=== PATIENT | female | born 1940 | race Caucasian/White ===

== ENCOUNTER 2021-01-04 22:49 | Emergency (ER) | payer MEDICARE, BC ==
[2021-01-05 00:02] LABS: ALBUMIN 3.6 g/dL (3.4-4.8); POTASSIUM 3.4 mmol/L (3.5-5.1)
[2021-01-05 00:03] LABS: CALCIUM 10.1 mg/dL (8.3-10.5)
[2021-01-05 00:05] LABS: TOTAL PROTEIN 6.7 g/dL (6.2-8.1)
[2021-01-05 00:06] LABS: TOTAL BILIRUBIN 0.4 mg/dL (0.2-1.2)
[2021-01-05] MEDS ORDERED: LOSARTAN POTASS50 M1 PO (00:06)
[2021-01-05 00:07] LABS: HEMATOCRIT 44.5 % (37.0-47.0); HEMOGLOBIN 14.5 g/dL (12.5-16.0); MEAN CELL VOLUME 93 fl (78-100); MEAN CORPUSCULAR HEMOGLOBIN 30 pg (27-31); MEAN CORPUSCULAR HGB CONC 33 g/dL (33-37); MEAN PLATELET VOLUME 10.2 fl (7.4-10.4); PLATELET COUNT 217 K/mm3 (130-400); RED BLOOD COUNT 4.77 M/mm3 (4.10-5.30); RED CELL DISTRIBUTION WIDTH 14.3 % (11.5-14.5); WHITE BLOOD COUNT 13.3 K/mm3 (4.8-10.8)
[2021-01-05] MEDS ORDERED: FLUTICASON0.05 MG/AC NS (00:07)
[2021-01-05] MEDS ORDERED: ADULT ASPIRIN R81 MG PO (00:09)
[2021-01-05 00:17] LABS: URINE APPEARANCE HAZY; URINE COLOR YELLOW
[2021-01-05 00:18] LABS: URINE BILIRUBIN NEGATIVE (NEGATIVE); URINE BLOOD 250 ery/uL (NEGATIVE); URINE GLUCOSE NEGATIVE (NEGATIVE); URINE KETONE NEGATIVE (NEGATIVE); URINE LEUKOCYTE ESTERASE TRACE (NEGATIVE); URINE NITRATE POSITIVE (NEGATIVE); URINE PROTEIN(semi-quant) 2+ mg/dL (NEGATIVE); URINE UROBILINOGEN NORMAL (NORMAL)
[2021-01-05 00:42] LABS: BAND 17 % (0-10); LYMPHOCYTE 1 % (20-51); MONOCYTE 1 % (3-10); NEUTROPHILS 80 % (42-75)
[2021-01-05 05:20] VITALS: BP 144/103
[2021-01-05] MEDS ORDERED: COLACE100 M1 PO (06:33)
== END 2021-01-05 05:20 | disposition other institution (70) ==
LOC: ED 22:49
PROVIDERS: Family Medicine
DX: N39.0 Urinary tract infection, site not specified (principal); G45.9 Transient cerebral ischemic attack, unspecified; R74.8 Abnormal levels of other serum enzymes; I50.9 Heart failure, unspecified; I11.0 Hypertensive heart disease with heart failure; J44.9 Chronic obstructive pulmonary disease, unspecified; Z20.822 Contact with and (suspected) exposure to COVID-19; Z79.82 Long term (current) use of aspirin
CPT/HCPCS: J0696; J1940

== ENCOUNTER 2021-01-05 05:17 | Inpatient (IN) | payer MEDICARE, BC ==
[~2021-01-05] VITALS: Ht 152.4 cm; Wt 89.6 kg
[~2021-01-05 05:17] MED LIST: ADULT ASPIRIN R81 MG PO; FLUTICASON0.05 MG/AC NS; LOSARTAN POTASS50 M1 PO
[2021-01-05 06:02] VITALS: BP 144/103
[2021-01-05] MEDS ORDERED: COLACE100 M1 PO (06:33)
[2021-01-05 09:40] VITALS: BP 88/57
[2021-01-05 14:11] VITALS: BP 105/60
[2021-01-05 17:11] VITALS: BP 122/79
[2021-01-05 17:46] LABS: POTASSIUM 3.8 mmol/L (3.5-5.1)
[2021-01-05 17:47] LABS: CALCIUM 10.5 mg/dL (8.3-10.5)
[2021-01-05 18:17] LABS: TROPONIN-I 2.44 ng/mL (<0.030)
[2021-01-05 22:06] VITALS: BP 122/79
[2021-01-06] VITALS (7 sets, daily range): BP systolic 92–130; BP diastolic 50–85
[2021-01-06 08:58] LABS: BASO # 0.03 K/mm3 (0.02-0.10); EOS # 0.16 K/mm3 (0.04-0.40); EOS % 1.2 % (1.0-5.0); HEMATOCRIT 45.8 % (37.0-47.0); HEMOGLOBIN 14.4 g/dL (12.5-16.0); LYMPH# 1.21 K/mm3 (1.50-4.00); MEAN CELL VOLUME 95 fl (78-100); MEAN CORPUSCULAR HEMOGLOBIN 30 pg (27-31); MEAN CORPUSCULAR HGB CONC 31 g/dL (33-37); MEAN PLATELET VOLUME 9.4 fl (7.4-10.4); MONO # 1.07 K/mm3 (0.20-0.80); PLATELET COUNT 200 K/mm3 (130-400); RED BLOOD COUNT 4.81 M/mm3 (4.10-5.30); RED CELL DISTRIBUTION WIDTH 14.8 % (11.5-14.5)
[2021-01-06 10:04] LABS: POTASSIUM 4.2 mmol/L (3.5-5.1)
[2021-01-06 10:05] LABS: CALCIUM 10.3 mg/dL (8.3-10.5)
[2021-01-06 18:37] LABS: URINE APPEARANCE CLOUDY; URINE BILIRUBIN NEGATIVE (NEGATIVE); URINE BLOOD 250 ery/uL (NEGATIVE); URINE COLOR YELLOW; URINE GLUCOSE NEGATIVE (NEGATIVE); URINE KETONE NEGATIVE (NEGATIVE); URINE LEUKOCYTE ESTERASE 1+ (NEGATIVE); URINE NITRATE NEGATIVE (NEGATIVE); URINE PROTEIN(semi-quant) TRACE mg/dL (NEGATIVE); URINE UROBILINOGEN NORMAL (NORMAL); URINE WBC 16-30 /hpf (0-3)
[2021-01-07 02:07] VITALS: BP 133/80
[2021-01-07 06:01] VITALS: BP 132/84
[2021-01-07 09:04] VITALS: BP 119/72
[2021-01-07 13:40] VITALS: BP 90/59
[2021-01-07 17:00] VITALS: BP 139/101
[2021-01-07 17:14] VITALS: BP 139/101
== END 2021-01-07 17:15 | disposition short-term general hospital (02) | DRG 281 ==
LOC: MED/SURG 05:17
PROVIDERS: ADMIT Family Medicine
DX: I21.19 ST elevation (STEMI) myocardial infarction involving other coronary artery of inferior wall (principal); G45.9 Transient cerebral ischemic attack, unspecified; N39.0 Urinary tract infection, site not specified; I11.0 Hypertensive heart disease with heart failure; I50.9 Heart failure, unspecified; R00.0 Tachycardia, unspecified; I87.8 Other specified disorders of veins; J45.909 Unspecified asthma, uncomplicated; Z88.0 Allergy status to penicillin; Z73.0 Burn-out
CPT/HCPCS: J0696; J1650; J1940; J2060

== ENCOUNTER 2021-11-17 11:32 | Emergency (ER) | payer MEDICARE, BC ==
[~2021-11-17 11:32] MED LIST changes: +COLACE100 M1 PO
[2021-11-17] MEDS ORDERED: POTASSIUM CHLO10 ME6 PO (11:49)
[2021-11-17] MEDS ORDERED: CLOPIDOGREL75 M2 PO (11:49)
[2021-11-17] MEDS ORDERED: FUROSEMIDE20 MG PO (11:49)
[2021-11-17] MEDS ORDERED: ATORVASTATIN CA40 MG PO (11:49)
[2021-11-17] MEDS ORDERED: METOPROLOL SUCC50 M1 PO (11:49)
[2021-11-17 12:58] LABS: HEMATOCRIT 46.4 % (37.0-47.0); HEMOGLOBIN 15.1 g/dL (12.5-16.0); MEAN CELL VOLUME 94 fl (78-100); MEAN CORPUSCULAR HEMOGLOBIN 31 pg (27-31); MEAN CORPUSCULAR HGB CONC 33 g/dL (33-37); MEAN PLATELET VOLUME 9.7 fl (7.4-10.4); PLATELET COUNT 252 K/mm3 (130-400); RED BLOOD COUNT 4.92 M/mm3 (4.10-5.30); RED CELL DISTRIBUTION WIDTH 13.3 % (11.5-14.5); WHITE BLOOD COUNT 14.6 K/mm3 (4.8-10.8)
[2021-11-17 13:10] LABS: POTASSIUM 3.8 mmol/L (3.5-5.1)
[2021-11-17 13:11] LABS: CALCIUM 10.3 mg/dL (8.3-10.5)
[2021-11-17 13:13] LABS: TOTAL PROTEIN 7.6 g/dL (6.2-8.1)
[2021-11-17 13:14] LABS: TOTAL BILIRUBIN 0.8 mg/dL (0.2-1.2)
[2021-11-17 13:15] LABS: URINE APPEARANCE CLEAR; URINE BILIRUBIN NEGATIVE (NEGATIVE); URINE BLOOD 250 ery/uL (NEGATIVE); URINE COLOR STRAW; URINE GLUCOSE NEGATIVE (NEGATIVE); URINE KETONE NEGATIVE (NEGATIVE); URINE LEUKOCYTE ESTERASE NEGATIVE (NEGATIVE); URINE NITRATE NEGATIVE (NEGATIVE); URINE PROTEIN(semi-quant) NEGATIVE (NEGATIVE); URINE UROBILINOGEN NORMAL (NORMAL)
[2021-11-17 13:19] LABS: MAGNESIUM 1.77 mg/dL (1.60-2.60)
[2021-11-17 13:25] LABS: BAND 8 % (0-10); LYMPHOCYTE 2 % (20-51); MONOCYTE 2 % (3-10); NEUTROPHILS 88 % (42-75)
[2021-11-17] MEDS ORDERED: ZITHROMAX 250M250 MG PO (14:04)
[2021-11-17 14:46] VITALS: BP 127/52
== END 2021-11-17 14:36 | disposition home or self-care (01) ==
LOC: ED 11:32
PROVIDERS: Nurse Practitioner Family
DX: L03.116 Cellulitis of left lower limb (principal); Z88.0 Allergy status to penicillin; Z20.822 Contact with and (suspected) exposure to COVID-19; Z28.310 Unvaccinated for COVID-19
CPT/HCPCS: J7030

== ENCOUNTER → 2021-12-02 | Outpatient (CLI) | payer MEDICARE, BC ==
[~2021-12-02] MED LIST changes: +ATORVASTATIN CA40 MG PO; +CLOPIDOGREL75 M2 PO; +FUROSEMIDE20 MG PO; +METOPROLOL SUCC50 M1 PO; +POTASSIUM CHLO10 ME6 PO; +ZITHROMAX 250M250 MG PO
== END ==
LOC: VAS 10:46 → RAD 10:46
DX: R22.42 Localized swelling, mass and lump, left lower limb (principal); L53.8 Other specified erythematous conditions

== ENCOUNTER 2022-11-21 08:31 | Emergency (ER) | payer MEDICARE, BC ==
[~2022-11-21] VITALS: Ht 149.9 cm; Wt 101.6 kg
[2022-11-21] MEDS ORDERED: FUROSEMIDE40 MG (09:25)
[2022-11-21 09:45] LABS: BASO # 0.02 K/mm3 (0.02-0.10); EOS # 0.02 K/mm3 (0.04-0.40); EOS % 0.1 % (1.0-5.0); HEMATOCRIT 42.3 % (37.0-47.0); HEMOGLOBIN 13.5 g/dL (12.5-16.0); LYMPH# 0.67 K/mm3 (1.50-4.00); MEAN CELL VOLUME 95 fl (78-100); MEAN CORPUSCULAR HEMOGLOBIN 30 pg (27-31); MEAN CORPUSCULAR HGB CONC 32 g/dL (33-37); MEAN PLATELET VOLUME 9.9 fl (7.4-10.4); MONO # 1.14 K/mm3 (0.20-0.80); PLATELET COUNT 245 K/mm3 (130-400); RED BLOOD COUNT 4.45 M/mm3 (4.10-5.30); RED CELL DISTRIBUTION WIDTH 14.1 % (11.5-14.5); WHITE BLOOD COUNT 15.1 K/mm3 (4.8-10.8)
[2022-11-21 09:53] LABS: ALBUMIN 3.7 g/dL (3.4-4.8); POTASSIUM 4.2 mmol/L (3.5-5.1)
[2022-11-21 09:54] LABS: CALCIUM 9.9 mg/dL (8.3-10.5)
[2022-11-21 09:57] LABS: TOTAL BILIRUBIN 0.7 mg/dL (0.2-1.2)
[2022-11-21 10:19] LABS: URINE APPEARANCE HAZY; URINE COLOR YELLOW; URINE LEUKOCYTE ESTERASE 2+ (NEGATIVE)
[2022-11-21 10:20] LABS: URINE BILIRUBIN NEGATIVE (NEGATIVE); URINE BLOOD TRACE (NEGATIVE); URINE GLUCOSE NEGATIVE (NEGATIVE); URINE KETONE NEGATIVE (NEGATIVE); URINE NITRATE NEGATIVE (NEGATIVE); URINE PROTEIN(semi-quant) NEGATIVE (NEGATIVE); URINE UROBILINOGEN NORMAL (NORMAL); URINE WBC 31-50 /hpf (0-3)
[2022-11-21] MEDS ORDERED: CIPRO500 M1 PO (12:17)
[2022-11-21 13:55] VITALS: BP 144/86
== END 2022-11-21 13:55 | disposition home or self-care (01) ==
LOC: ED 08:31
PROVIDERS: Nurse Practitioner Family
DX: N30.01 Acute cystitis with hematuria (principal); M54.50 Low back pain, unspecified; Z88.0 Allergy status to penicillin; Z28.310 Unvaccinated for COVID-19
CPT/HCPCS: J0744; J7040

== ENCOUNTER → 2023-02-16 | Outpatient (CLI) | payer MEDICARE, BC ==
[~2023-02-16] MED LIST changes: +CIPRO500 M1 PO; +FUROSEMIDE40 MG
== END ==
LOC: RAD 11:13
DX: J98.11 Atelectasis (principal)